=== PATIENT | female | born 1995 | race Caucasian/White ===

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

== ENCOUNTER 2018-05-27 12:42 | Emergency (ER) | payer MEDICARE, OTHER, BC ==
[2018-05-27 13:07] VITALS: RESP 20
[2018-05-27] MEDS ORDERED: SODIUM CHLORIDE 0.9% 1,000 ML IV STA (14:05)
--- NOTE | 2018-05-27 14:23 | ED ---
General Adult HPI - General Chief complaint: Abdominal Pain Stated complaint: abd pain, fever, vomiting Source: family, RN notes reviewed, old records reviewed Mode of arrival: ambulatory Limitations: no limitations - History of Present Illness Initial comments: 22-year-old female patient with past medical history of Down syndrome presents to ED with 1 day of abdominal pain, nausea vomiting, fever, nonproductive cough. Mother provided the majority of history. Mother reports that prior today patient has not had any signs or symptoms. Mother reports that this morning patient complained of generalized abdominal pain at approximately 7 AM. Mother reports that patient has had approximately 3 episodes of emesis today most recently half an hour ago. She reports that patient has also had a nonproductive cough today. She also reports a fever of 100F at home. Reports that patient has not eaten anything today, has just had sips of water. Describes abdominal pain as generalized, no localized pain. Denies chest pain, shortness of breath, diarrhea. Systemic: Pt denies fatigue, myalgia, rash. Pt denies weakness, night sweats, weight loss. Neuro: Pt denies headache, visual disturbances, syncope or pre-syncope. HEENT: Pt denies ocular discharge or irritation, otalgia, rhinorrhea, pharyngitis or notable lymphadenopathy. Cardiopulmonary: Pt denies chest pain, SOB, heart palpitations, dyspnea on exertion. Abdominal/GI: Pt denies diarrhea. : Pt denies dysuria, burning w/ urination, frequency/urgency. Denies new onset urinary or bowel incontinence. MSK: Pt denies myalgia, loss of strength or function in extremities. Neuro: Pt denies new onset weakness, paresthesias. - Related Data Home Medications Medication Instructions Recorded Confirmed Ondansetron [Zofran ODT] 8 mg PO Q8HR 08/29/16 08/29/16 Topiramate [Topamax] 15 mg PO BID 08/29/16 08/29/16 Previous Rx's Medication Instructions Recorded Oseltamivir [Tamiflu] 75 mg PO BID #10 cap 08/29/16 guaiFENesin-Coden 100-10MG/5ML 10 ml PO Q4HR PRN #250 ml 08/29/16 [Robitussin AC] Ondansetron [Zofran] 4 mg PO Q8HR PRN #15 tab 05/27/18 Oseltamivir [Tamiflu] 75 mg PO Q12HR 5 Days cap 05/27/18 Allergies Allergy/AdvReac Type Severity Reaction Status Date / Time No Known Allergies Allergy Verified 05/27/18 13:07 Review of Systems ROS Statement: Those systems with pertinent positive or pertinent negative responses have been documented in the HPI. ROS Other: All systems not noted in ROS Statement are negative. Past Medical History Past Medical History: Pneumonia Additional Past Medical History / Comment(s): down syndrome History of Any Multi-Drug Resistant Organisms: None Reported Past Surgical History: No Surgical Hx Reported Past Psychological History: No Psychological Hx Reported Smoking Status: Never smoker Past Alcohol Use History: None Reported Past Drug Use History: None Reported - Past Family History Mother Family Medical History: No Reported History General Exam - General Exam Comments Initial Comments: Constitutional: NAD, AOX3, Pt has pleasant affect. HEENT: NC/AT, trachea midline, neck supple, no lymphadenopathy. Posterior pharynx non erythematous, without exudates. External ears appear normal, without discharge. Mucous membranes moist. Eyes PERRLA, EOM intact. There is no scleral icterus. No pallor noted. Cardiopulmonary: RRR, no murmurs, rubs or gallops, no JVD noted. Lungs CTAB in anterior and posterior valdes. No peripheral edema. Abdominal exam: Abdomen soft and non-distended. Mild generalized, non localized abdominal pain. No localized tenderness in RLQ. [place] sign negative, psoas sign negative. Bowel sounds active in LLQ. No hepatosplenomegaly. No ecchymosis Neuro: CN II-XII grossly intact. No nuchal rigidity. MSK: No posterior calf tenderness bilaterally, homans sign negative bilaterally. Posterior tibialis and radial pulse +2 bilaterally. Sensation intact in upper and lower extremities. Full active ROM in upper and lower extremities, 5/5 stregnth. Limitations: no limitations Course Vital Signs 05/27/18 13:06 Temperature 98.5 F Pulse Rate 107 H Respiratory 20 Rate Blood Pressure 96/52 O2 Sat by Pulse 100 Oximetry Medical Decision Making - Medical Decision Making 22-year-old female patient with past medical history of Down syndrome presents to ED with 1 day of abdominal pain, nausea vomiting, fever, nonproductive cough. Mother provided the majority of history. Mother reports that prior today patient has not had any signs or symptoms. Mother reports that this morning patient complained of generalized abdominal pain at approximately 7 AM. Mother reports that patient has had approximately 3 episodes of emesis today most recently half an hour ago. She reports that patient has also had a nonproductive cough today. She also reports a fever of 100F at home. Physical examination display acute pathology. O2 investigations CBC, CMP, UA noncompressive. Influenza A was positive. Troponin was negative. Chest x-ray did not display any acute process. CT abdomen and pelvis displayed mesenteric lymph nodes, moderate bladder wall thickening, trace adnexal free fluid, small anterior pericardial effusion 5 mm. Patient not having any chest pain, shortness of breath, signs of tamponade. Troponin negative. Patient given 1 dose of Tamiflu in ED. Patient given IV fluids. Patient to be given prescription for Tamiflu. Patient to follow with PCP in 1-2 days. Patient to return to ED if new signs symptoms develop or if condition worsens in any way. Case discussed with Dr. Bartholomew. - Lab Data Result diagrams: 05/27/18 14:41 05/27/18 14:41 Lab Results 05/27/18 05/27/18 05/27/18 Range/Units 14:41 14:41 14:41 WBC 8.8 (4.0-11.0) k/uL RBC 4.35 (3.80-5.40) m/uL Hgb 14.7 (11.4-16.0) gm/dL Hct 43.1 (34.0-46.0) % MCV 99.1 (80.0-100.0) fL MCH 33.8 (25.0-35.0) pg MCHC 34.1 (31.0-37.0) g/dL RDW 12.5 (11.5-15.5) % Plt Count 216 (150-450) k/uL Neutrophils % 93 % Lymphocytes % 3 % Monocytes % 2 % Eosinophils % 1 % Basophils % 0 % Neutrophils # 8.1 H (1.3-7.7) k/uL Lymphocytes # 0.3 L (1.0-4.8) k/uL Monocytes # 0.2 (0-1.0) k/uL Eosinophils # 0.1 (0-0.7) k/uL Basophils # 0.0 (0-0.2) k/uL Sodium 139 (137-145) mmol/L Potassium 4.1 (3.5-5.1) mmol/L Chloride 106 (98-107) mmol/L Carbon Dioxide 20 L (22-30) mmol/L Anion Gap 13 mmol/L BUN 16 (7-17) mg/dL Creatinine 0.94 (0.52-1.04) mg/dL Est GFR (CKD-EPI)AfAm >90 (>60 ml/min/1.73 sqM) Est GFR (CKD-EPI)NonAf 88 (>60 ml/min/1.73 sqM) Glucose 118 H (74-99) mg/dL Plasma Lactic Acid Eugenio (0.7-2.0) mmol/L Calcium 9.4 (8.4-10.2) mg/dL Total Bilirubin 0.6 (0.2-1.3) mg/dL AST 26 (14-36) U/L ALT 31 (9-52) U/L Alkaline Phosphatase 65 (38-126) U/L Troponin I (0.000-0.034) ng/mL Total Protein 7.8 (6.3-8.2) g/dL Albumin 4.5 (3.5-5.0) g/dL Amylase 38 (30-110) U/L Lipase 77 (23-300) U/L Urine Color Urine Appearance (Clear) Urine pH (5.0-8.0) Ur Specific [place] (1.001-1.035) Urine Protein (Negative) Urine Glucose (UA) (Negative) Urine Ketones (Negative) Urine Blood (Negative) Urine Nitrite (Negative) Urine Bilirubin (Negative) Urine Urobilinogen (<2.0) mg/dL Ur Leukocyte Esterase (Negative) Urine HCG, Qual Not Detected (Not Detectd) Influenza Type A RNA (Not Detectd) Influenza Type B (PCR) (Not Detectd) 05/27/18 05/27/18 05/27/18 Range/Units 14:41 14:41 14:47 WBC (4.0-11.0) k/uL RBC (3.80-5.40) m/uL Hgb (11.4-16.0) gm/dL Hct (34.0-46.0) % MCV (80.0-100.0) fL MCH (25.0-35.0) pg MCHC (31.0-37.0) g/dL RDW (11.5-15.5) % Plt Count (150-450) k/uL Neutrophils % % Lymphocytes % % Monocytes % % Eosinophils % % Basophils % % Neutrophils # (1.3-7.7) k/uL Lymphocytes # (1.0-4.8) k/uL Monocytes # (0-1.0) k/uL Eosinophils # (0-0.7) k/uL Basophils # (0-0.2) k/uL Sodium (137-145) mmol/L Potassium (3.5-5.1) mmol/L Chloride (98-107) mmol/L Carbon Dioxide (22-30) mmol/L Anion Gap mmol/L BUN (7-17) mg/dL Creatinine (0.52-1.04) mg/dL Est GFR (CKD-EPI)AfAm (>60 ml/min/1.73 sqM) Est GFR (CKD-EPI)NonAf (>60 ml/min/1.73 sqM) Glucose (74-99) mg/dL Plasma Lactic Acid Eugenio 1.4 (0.7-2.0) mmol/L Calcium (8.4-10.2) mg/dL Total Bilirubin (0.2-1.3) mg/dL AST (14-36) U/L ALT (9-52) U/L Alkaline Phosphatase (38-126) U/L Troponin I <0.012 (0.000-0.034) ng/mL Total Protein (6.3-8.2) g/dL Albumin (3.5-5.0) g/dL Amylase (30-110) U/L Lipase (23-300) U/L Urine Color Yellow Urine Appearance Clear (Clear) Urine pH 7.5 (5.0-8.0) Ur Specific [place] 1.020 (1.001-1.035) Urine Protein Trace H (Negative) Urine Glucose (UA) Negative (Negative) Urine Ketones Negative (Negative) Urine Blood Negative (Negative) Urine Nitrite Negative (Negative) Urine Bilirubin Negative (Negative) Urine Urobilinogen <2.0 (<2.0) mg/dL Ur Leukocyte Esterase Negative (Negative) Urine HCG, Qual (Not Detectd) Influenza Type A RNA (Not Detectd) Influenza Type B (PCR) (Not Detectd) 05/27/18 Range/Units 15:08 WBC (4.0-11.0) k/uL RBC (3.80-5.40) m/uL Hgb (11.4-16.0) gm/dL Hct (34.0-46.0) % MCV (80.0-100.0) fL MCH (25.0-35.0) pg MCHC (31.0-37.0) g/dL RDW (11.5-15.5) % Plt Count (150-450) k/uL Neutrophils % % Lymphocytes % % Monocytes % % Eosinophils % % Basophils % % Neutrophils # (1.3-7.7) k/uL Lymphocytes # (1.0-4.8) k/uL Monocytes # (0-1.0) k/uL Eosinophils # (0-0.7) k/uL Basophils # (0-0.2) k/uL Sodium (137-145) mmol/L Potassium (3.5-5.1) mmol/L Chloride (98-107) mmol/L Carbon Dioxide (22-30) mmol/L Anion Gap mmol/L BUN (7-17) mg/dL Creatinine (0.52-1.04) mg/dL Est GFR (CKD-EPI)AfAm (>60 ml/min/1.73 sqM) Est GFR (CKD-EPI)NonAf (>60 ml/min/1.73 sqM) Glucose (74-99) mg/dL Plasma Lactic Acid Eugenio (0.7-2.0) mmol/L Calcium (8.4-10.2) mg/dL Total Bilirubin (0.2-1.3) mg/dL AST (14-36) U/L ALT (9-52) U/L Alkaline Phosphatase (38-126) U/L Troponin I (0.000-0.034) ng/mL Total Protein (6.3-8.2) g/dL Albumin (3.5-5.0) g/dL Amylase (30-110) U/L Lipase (23-300) U/L Urine Color Urine Appearance (Clear) Urine pH (5.0-8.0) Ur Specific [place] (1.001-1.035) Urine Protein (Negative) Urine Glucose (UA) (Negative) Urine Ketones (Negative) Urine Blood (Negative) Urine Nitrite (Negative) Urine Bilirubin (Negative) Urine Urobilinogen (<2.0) mg/dL Ur Leukocyte Esterase (Negative) Urine HCG, Qual (Not Detectd) Influenza Type A RNA Detected H (Not Detectd) Influenza Type B (PCR) Not Detected (Not Detectd) Disposition Clinical Impression: Influenza A Disposition: HOME SELF-CARE Condition: Good Instructions: Influenza (ED) Additional Instructions: Patient to adhere to previously discussed treatment plan and will take medication(s) as directed. Patient to follow up with PCP in 1-2 days. Patient to return to ED if symptoms do not improve. Prescriptions: Ondansetron [Zofran] 4 mg PO Q8HR PRN #15 tab PRN Reason: Nausea Oseltamivir [Tamiflu] 75 mg PO Q12HR 5 Days cap Is patient prescribed a controlled substance at d/c from ED?: No Referrals: Ernesto Stinson MD [Primary Care Provider] - 1-2 days Time of Disposition: 17:02
[2018-05-27 14:46] LABS: Appearance,Urine Clear (Clear); Basophils % (A) 0 %; Bilirubin,Urine Negative (Negative); Blood,Urine Negative (Negative); Color,Urine Yellow; Eosinophils # (A) 0.1 k/uL (0-0.7); Eosinophils % (A) 1 %; Glucose,Urine (UA) Negative (Negative); HCT 43.1 % (34.0-46.0); HGB 14.7 gm/dL (11.4-16.0); Ketones,Urine Negative (Negative); Leukocyte Esterase,Urine Negative (Negative); Lymphocytes # (A) 0.3 k/uL (1.0-4.8); Lymphocytes % (A) 3 %; MCH 33.8 pg (25.0-35.0); MCHC 34.1 g/dL (31.0-37.0); MCV 99.1 fL (80.0-100.0); Mean Platelet Volume 6.5; Monocytes # (A) 0.2 k/uL (0-1.0); Monocytes % (A) 2 %; Neutrophils # (A) 8.1 k/uL (1.3-7.7); Neutrophils % (A) 93 %; Nitrite,Urine Negative (Negative); PH, Urine 7.5 (5.0-8.0); Platelet Count 216 k/uL (150-450); Protein,Urine Trace (Negative); RBC 4.35 m/uL (3.80-5.40); RDW 12.5 % (11.5-15.5); Urobilinogen,Urine <2.0 mg/dL (<2.0); WBC 8.8 k/uL (4.0-11.0)
[2018-05-27 14:56] LABS: ALT 31 U/L (9-52); AST 26 U/L (14-36); Albumin 4.5 g/dL (3.5-5.0); Alkaline Phosphatase 65 U/L (38-126); Amylase 38 U/L (30-110); Anion Gap 13 mmol/L; Blood Urea Nitrogen 16 mg/dL (7-17); Calcium 9.4 mg/dL (8.4-10.2); Carbon Dioxide 20 mmol/L (22-30); Chloride 106 mmol/L (98-107); Glucose 118 mg/dL (74-99); Lipase 77 U/L (23-300); Potassium 4.1 mmol/L (3.5-5.1); Sodium 139 mmol/L (137-145); Total Bilirubin 0.6 mg/dL (0.2-1.3); Total Protein 7.8 g/dL (6.3-8.2)
--- NOTE | 2018-05-27 15:31 | CT ---
EXAMINATION TYPE: CT abdomen pelvis w con DATE OF EXAM: 05/27/2018 COMPARISON: 08/21/2010 HISTORY: 22-year-old female Lower abdominal and back pain, vomiting, and fever. TECHNIQUE: Contiguous axial scanning of the abdomen and pelvis following administration of 100 ml Iso ricardo 300 IV contrast. Delayed images through the kidneys and coronal/sagittal reconstructions perform ed. CT DLP: 567.2 mGycm Automated exposure control for dose reduction was used. FINDINGS: Heart normal size with small anterior pericardial effusion measuring 5 mm thick. Lung bases clear wit hout pleural effusion. Liver borderline enlarged at 17.8 cm. Small amount of focal fat anteriorly along the falciform ligame nt. Otherwise, no focal liver lesion. No biliary ductal dilatation. Portal venous system is patent. Gallbladder within normal limits. Adrenal glands, kidneys, spleen with small hilar splenule, pancreas appear within normal limits. Prominent 9 mm right lower quadrant mesenteric lymph node is noted. And additional prominent 7 mm lef t upper quadrant mesenteric lymph node. No retroperitoneal lymphadenopathy. No dilated small bowel, free fluid, or free air. No stool within the right side of the colon. Mild st ool within the cecum and additional scattered mild stool burden within the left side of the colon. No pericolonic inflammatory change. Appendix is normal. Moderate circumferential bladder wall thickening more than expected even given nondistention. Uterus anteverted with both ovaries visualized. Trace right adnexal free fluid is seen and likely physiologi c. No pelvic lymphadenopathy. Bones: No osseous destructive process. Patient is tilted towards the right. IMPRESSION: 1. A COUPLE PROMINENT MESENTERIC LYMPH NODES MEASURING UP TO 9 MM ARE NONSPECIFIC AND MAY BE REACTIVE /POST INFLAMMATORY. MESENTERIC ADENITIS IS ALSO POSSIBLE. 2. MODERATE CIRCUMFERENTIAL BLADDER WALL THICKENING. CORRELATE FOR CYSTITIS. 3. TRACE RIGHT ADNEXAL FREE FLUID LIKELY PHYSIOLOGIC. 4. SMALL ANTERIOR PERICARDIAL EFFUSION MEASURING 5 MM THICK.
--- NOTE | 2018-05-27 15:31 | XR ---
EXAMINATION TYPE: XR chest 2V DATE OF EXAM: 05/27/2018 COMPARISON: 08/29/2016 HISTORY: 22-year-old female fever TECHNIQUE: PA and lateral views FINDINGS: The cardiomediastinal silhouette, aorta, and pulmonary vasculature are within normal limits. Lungs an d pleural spaces are clear. IMPRESSION: No acute cardiopulmonary process.
[2018-05-27] MEDS ORDERED: OSELTAMIVIR 75 MG CAP PO STA (16:04)
[2018-05-27] MEDS ORDERED: SODIUM CHLORIDE 0.9% 500 ML 500 ML IV STA (16:55)
[2018-05-27] MEDS ORDERED: ACETAMINOPHEN TAB 325 MG TAB PO STA (17:43)
[2018-05-27 18:45] VITALS: BP 116/63; PULSE 107; TEMP 101.4
== END 2018-05-27 18:51 | disposition home or self-care (01) ==
LOC: EC 12:42
DX: J10.1 Influenza due to other identified influenza virus with other respiratory manifestations (principal); R10.84 Generalized abdominal pain; Z79.899 Other long term (current) drug therapy
CPT/HCPCS: 36415; 80053; 82150; 83605; 83690; 84484; 85025; 81003; 81025; 87502; 71046; 74177; 99284; 96360; 96361; Q9967

== ENCOUNTER 2020-05-31 09:32 | Emergency (ER) | payer MEDICARE, OTHER ==
[2020-05-31 09:41] VITALS: RESP 18; TEMP 98
[2020-05-31 11:49] LABS: Amphetamine Screen,Urine Not Detected (NotDetected); Benzodiazepines Screen,Urine Not Detected (NotDetected); Cocaine Screen,Urine Not Detected (NotDetected); Methadone Screen, Urine Not Detected (NotDetected); Opiate Screen,Urine Not Detected (NotDetected); Phencyclidine Screen,Urine Not Detected (NotDetected); Tricyclic Antidepressant,Urine Not Detected (NotDetected); Urn Cannabinoid Scrn Not Detected (NotDetected)
[2020-05-31 11:50] LABS: Barbiturate Screen,Urine Not Detected (NotDetected); Oxycodone Screen, Urine Not Detected (NotDetected)
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
[2020-05-31 14:19] VITALS: BP 143/91; PULSE 99
== END 2020-05-31 14:19 | disposition home or self-care (01) ==
LOC: EEVIPCON 09:32 → EC 09:32
DX: R45.6 Violent behavior (principal); Z88.8 Allergy status to other drugs, medicaments and biological substances; Q90.9 Down syndrome, unspecified
CPT/HCPCS: 80306; 81025; 82075; 99285

== ENCOUNTER 2021-01-27 23:50 | Inpatient (IN) | payer MEDICARE, MEDICAID ==
--- NOTE | 2021-01-28 00:29 | ED ---
Psych HPI - General Chief Complaint: Psychiatric Symptoms Stated Complaint: Mental Health Time Seen by Provider: 01/28/21 00:03 Source: patient, EMS, RN notes reviewed, old records reviewed Mode of arrival: EMS Limitations: no limitations - History of Present Illness Initial Comments: This is a 25-year-old female to the ER for evaluation. Patient presents emergency department today for evaluation regarding aggressive outbursts, not taking patient's medications as directed. History of same. MD Complaint: altered mental status, other (Anger management and outbursts) -: days(s) Associated Psychiatric Symptoms: other (Aggressive behavior) Quality: getting worse Worsens With: none Context: not taking psychiatric medications Associated Symptoms: denies other symptoms Treatments Prior to Arrival: placed on mental health hold - Related Data Home Medications Medication Instructions Recorded Confirmed Melatonin 5 - 10 mg PO HS PRN 05/31/20 05/31/20 diphenhydrAMINE HCL [Children's 12.5 mg PO Q4H PRN 05/31/20 05/31/20 Benadryl Allergy] hydrOXYzine pamoate [hydrOXYzine 25 mg PO QID PRN 05/31/20 05/31/20 PAMOATE] Previous Rx's Medication Instructions Recorded traZODone HCL [Desyrel] 50 mg PO HS #14 tab 05/31/20 Allergies Allergy/AdvReac Type Severity Reaction Status Date / Time ziprasidone [From Geodon] AdvReac agitation Verified 05/31/20 11:09 Review of Systems ROS Statement: Those systems with pertinent positive or pertinent negative responses have been documented in the HPI. ROS Other: All systems not noted in ROS Statement are negative. Past Medical History Past Medical History: Pneumonia Additional Past Medical History / Comment(s): down syndrome History of Any Multi-Drug Resistant Organisms: None Reported Past Surgical History: No Surgical Hx Reported Past Psychological History: No Psychological Hx Reported Smoking Status: Never smoker Past Alcohol Use History: None Reported Past Drug Use History: None Reported - Past Family History Mother Family Medical History: No Reported History General Exam General appearance: alert, in no apparent distress Head exam: Present: atraumatic, normocephalic, normal inspection Eye exam: Present: normal appearance, PERRL, EOMI. Absent: scleral icterus, conjunctival injection, periorbital swelling ENT exam: Present: normal exam, mucous membranes moist Neck exam: Present: normal inspection. Absent: tenderness, meningismus, lymphadenopathy Respiratory exam: Present: normal lung sounds bilaterally. Absent: respiratory distress, wheezes, rales, rhonchi, stridor Cardiovascular Exam: Present: regular rate, normal rhythm, normal heart sounds. Absent: systolic murmur, diastolic murmur, rubs, gallop, clicks GI/Abdominal exam: Present: soft, normal bowel sounds. Absent: distended, tenderness, guarding, rebound, rigid Extremities exam: Present: normal inspection, full ROM, normal capillary refill. Absent: tenderness, pedal edema, joint swelling, calf tenderness Back exam: Present: normal inspection Neurological exam: Present: alert, oriented X3, CN II-XII intact Psychiatric exam: Present: normal affect, normal mood Skin exam: Present: warm, dry, intact, normal color. Absent: rash Course Vital Signs 01/27/21 23:52 Temperature 97.9 F Pulse Rate 84 Respiratory 20 Rate Blood Pressure 110/77 O2 Sat by Pulse 98 Oximetry - Reevaluation(s) Reevaluation #1: 01/28/21 01:00 Medical records reviewed 01/28/21 01:00 There for psychiatric evaluation Reevaluation #2: 01/28/21 02:58 Patient seen in and evaluated by psychiatry Medical Decision Making - Medical Decision Making 25 female to the ER for evaluation of psychiatric illness. Patient be admitted for control of mood disorder, anger and aggression. Disposition Clinical Impression: Personality disorder, Mood disorder Disposition: TRANSFER TO PSYCH HOSP/UNIT Condition: Fair Is patient prescribed a controlled substance at d/c from ED?: No Referrals: Chas Kidd DO [Primary Care Provider] - 1-2 days
[2021-01-28] MEDS ORDERED: PALIPERIDONE 3 MG TAB.ER.24 PO STA (03:00)
[2021-01-28] MEDS ORDERED: hydrOXYzine pamoate 25 MG CAP PO PRN (03:39)
[2021-01-28] MEDS ORDERED: LORazepam 1 MG TAB PO PRN (03:42)
[2021-01-28] MEDS ORDERED: LORazepam 2 MG/ML INJ IM PRN (03:45)
[2021-01-28] MEDS ORDERED: HALOPERIDOL LACTATE 5 MG/ML 1 ML VIAL IM PRN (03:46)
[2021-01-28] MEDS ORDERED: traZODone HCL 50 MG TAB PO PRN (03:51)
[2021-01-28] MEDS ORDERED: haloperidoL 5 MG TAB PO PRN (04:00)
[2021-01-28] MEDS ORDERED: ACETAMINOPHEN TAB 325 MG TAB PO PRN (08:00)
[2021-01-28] MEDS ORDERED: MAG HYDROX/AL HYDROX/SIMETH 30 ML CUP PO PRN (08:00)
[2021-01-28] MEDS: PALIPERIDONE 3 MG TAB.ER.24 PO SCH (08:36)
[2021-01-28] MEDS ORDERED: MAGNESIUM HYDROXIDE 2,400 MG/10 ML CUP PO PRN (09:00)
[2021-01-28] MEDS ORDERED: NICOTINE 14MG/24HR PATCH TRANSDERM SCH (09:00)
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
--- NOTE | 2021-01-28 17:54 | P.CONS ---
History of Present Illness - Reason for Consult Consult date: 01/28/21 Medical management Requesting physician: Dale Castillo - Chief Complaint Hitting out - History of Present Illness Consultation: This is a 24-year-old patient who follows with Dr. Chas Lema. Has a known history of Down syndrome. Does have a history of getting aggressive. Normally the mother and the stepfather able to talk her down. The last for 5 days. She is being hitting out and getting aggressive. Throwing things around. In the past but this had to be called out. No fever or chills reported. No shortness of breath. No urinary symptoms. Appetite otherwise has been good. When I come to see the patient she be laying in bed. Comfortable. Able to answer simple questions and communicate. Review of systems: GEN.: None EYES: None HEENT: None NECK: None RESPIRATORY: None CARDIOVASCULAR: None GASTROINTESTINAL: None GENITOURINARY: None MUSCULOSKELETAL: None LYMPHATICS: None HEMATOLOGICAL: None PSYCHIATRY: As above NEUROLOGICAL: None Past medical history to include: Down syndrome Social history: No use of smoking or alcohol. No recreational drugs. Lives with her mother and stepfather Family history: Patient cannot tell Physical examination: VITAL SIGNS: 96.9, 69, 18, 128/68, 98% room air GENERAL: BMI 28.2, laying in bed, comfortable. Down features. EYES: Pupils equal. Conjunctiva normal. HEENT: External appearance of nose and ears normal, oral cavity grossly normal. NECK: JVD not raised; masses not palpable. HEART: First and second heart sounds are normal; no edema. LUNGS: Respiratory rate normal; clear to auscultation. ABDOMEN: Soft, nontender, liver spleen not palpable, no masses palpable. PSYCH: Alert and oriented x3; mood and affect normal. NEUROLOGICAL: Cranial nerves grossly intact; no facial asymmetry, power and sensation grossly intact. LYMPHATICS: No lymph nodes palpable in the axilla and neck Investigations: Coronavirus [PCR]: Not detected Assessment and plan: -Down syndrome -Developmental delay Follow closely Continue current medication treatment plan. Follow with psychiatry medications. Follow-up with PCP upon discharge Thank you Dr. Castillo Past Medical History Past Medical History: Pneumonia Additional Past Medical History / Comment(s): down syndrome History of Any Multi-Drug Resistant Organisms: None Reported Past Surgical History: No Surgical Hx Reported Past Psychological History: No Psychological Hx Reported Smoking Status: Never smoker Past Alcohol Use History: None Reported Past Drug Use History: None Reported - Past Family History Mother Family Medical History: No Reported History Medications and Allergies Home Medications Medication Instructions Recorded Confirmed Type Melatonin 5 - 10 mg PO HS PRN 05/31/20 05/31/20 History diphenhydrAMINE HCL [Children's 12.5 mg PO Q4H PRN 05/31/20 05/31/20 History Benadryl Allergy] hydrOXYzine pamoate [hydrOXYzine 25 mg PO QID PRN 05/31/20 05/31/20 History PAMOATE] traZODone HCL [Desyrel] 50 mg PO HS #14 tab 05/31/20 Rx Allergies Allergy/AdvReac Type Severity Reaction Status Date / Time ziprasidone [From Geodon] AdvReac agitation Verified 05/31/20 11:09 Physical Exam Vitals: Vital Signs Temp Pulse Pulse Resp BP BP Pulse Ox 01/28/21 06:25 96.9 F L 69 18 128/68 98 01/27/21 23:52 97.9 F 84 20 110/77 98 Intake and Output 01/27/21 01/28/21 01/28/21 22:59 06:59 14:59 Other: Weight 68.9 kg
[2021-01-28] MEDS ORDERED: MELATONIN 5 MG TABLET PO PRN (21:00)
[2021-01-29] MEDS: PALIPERIDONE 3 MG TAB.ER.24 PO SCH (08:07)
[2021-01-29 09:25] LABS: Basophils % (A) 1 %; Eosinophils # (A) 0.1 k/uL (0-0.7); Eosinophils % (A) 1 %; HCT 43.2 % (34.0-46.0); HGB 14.6 gm/dL (11.4-16.0); Lymphocytes # (A) 1.6 k/uL (1.0-4.8); Lymphocytes % (A) 33 %; MCH 34.4 pg (25.0-35.0); MCHC 33.9 g/dL (31.0-37.0); MCV 101.6 fL (80.0-100.0); Macrocytosis Slight; Mean Platelet Volume 6.6; Monocytes # (A) 0.3 k/uL (0-1.0); Monocytes % (A) 6 %; Neutrophils # (A) 2.7 k/uL (1.3-7.7); Neutrophils % (A) 57 %; Platelet Count 335 k/uL (150-450); RBC 4.25 m/uL (3.80-5.40); RDW 14.8 % (11.5-15.5); WBC 4.8 k/uL (3.8-10.6)
[2021-01-29 09:52] LABS: ALT 39 U/L (4-34); AST 38 U/L (14-36); African American GFR (CKD) >90 (>60 ml/min/1.73 sqM); Alkaline Phosphatase 65 U/L (38-126); Anion Gap 7 mmol/L; Blood Urea Nitrogen 17 mg/dL (7-17); Calcium 8.8 mg/dL (8.4-10.2); Carbon Dioxide 24 mmol/L (22-30); Chloride 105 mmol/L (98-107); Glucose 94 mg/dL (74-99); Non-African American GFR(CKD) 88 (>60 ml/min/1.73 sqM); Potassium 4.2 mmol/L (3.5-5.1); Sodium 136 mmol/L (137-145); Total Bilirubin 0.2 mg/dL (0.2-1.3); Total Protein 7.1 g/dL (6.3-8.2)
[2021-01-29] MEDS ORDERED: MELATONIN 5 MG TABLET PO PRN (11:57)
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
[2021-01-30] MEDS: PALIPERIDONE 3 MG TAB.ER.24 PO SCH (08:28)
--- NOTE | 2021-01-30 12:18 | P.PN ---
Progress Note - Text Progress Note Date: 01/30/21 Clinical Problems: Developmental disability moderate, Down syndrome, unspecified disruptive, impulse control and conduct disorder, r/o major neurocognitive disorder secondary to Down syndrome. Interim history: I reviewed the medical record and interviewed the patient. She denied problems or concerns. She feels sedated since she started the Invega. She did not perseverated about the circumstances that this hospitalization. Her cognitive limitations were apparent during the interview. She has had no episodes of behavioral dyscontrol since admission to the unit. She is mostly pleasant and cooperative and spends her time in her room. She attended one therapeutic groups since admission. She slept 6 hours last night. Mental status exam: She presented as a short and stocky 24-year-old female with Down syndrome. She made eye contact and appeared to attend to the interview. She had the physical characteristics of Down's syndrome including small chin, slanted eyes and flat nasal bridge. She showed slight psychomotor retardation. Her speech was not spontaneous and had decreased rate and rhythm. Her speech was dysarthric. Her affect was flat and expressive. She did not express suicidal ideation or wishes. She denied homicidal ideation. She denied feeling hopeless, helpless or worthless. She ruminated about circumstances of this hospitalization. She did not express ideas reference, paranoid ideation or delusions. Her thinking was very concrete but her associations were organized and goal directed. She denied hallucinations did not appear to be responding to internal stimuli. Assessment: She showed no episodes of behavioral dyscontrol since admission to the unit. She is sedated most likely from Invega. Plan: Continue inpatient treatment. Safety precautions. Continue Invega 3 mg daily and Desyrel 25 mg at bedtime when necessary for sleep. Decrease when necessary dose of melatonin to 5 mg as prescribed request of her mother. Encourage participation in therapeutic groups and activities as tolerated. Evaluate clinical status response to treatment daily basis.
[2021-01-30 13:58] LABS: Chol/HDL Ratio 3.78; Cholesterol 170 mg/dL (0-200); LDL Cholesterol,Calculated 108.4 mg/dL (0.0-131.0)
[2021-01-31 06:09] VITALS: RESP 16
[2021-01-31] MEDS: PALIPERIDONE 3 MG TAB.ER.24 PO SCH (07:54)
--- NOTE | 2021-01-31 10:21 | P.PN ---
Progress Note - Text Progress Note Date: 01/31/21 Interval History: Patient was seen lying in her bed this morning and was directable and agreeable to speak with advertising copywriter in the office. Patient was fairly pleasant during conversation however was concrete. She spoke briefly about why she came to the hospital and states that "my mom was worried about my medicine". She claims that since being in the hospital she has been doing fairly well in claims that her mood is better on the current medication and treatment. She denied any problems with the medications however did state that she feels "a bit sleepy during the day". She did state that she is going to the activity groups and asking questions. She states that she is eating fairly and showering. She claims that she spoke with her mother yesterday over the phone. She is denying any depression or anxiety today or any irritability. She is agreeable to continue on with her medications. At this time patient denies any suicidal or homical ideations, intent or plan. Patient denies any auditory, visual hallucinations and denies any paranoia or delusions. Mental Status Exam: General Appearance: Patient appears to be short in stature, stated age is alert, directable, and attempts to be cooperative. Behavior: Patient is calmly seated without any agitated behavior. Speech: Patient's speech is fluent and nonpressured. [place] Mood/Affect: Mood is improving mildly, affect is congruent and constricted. Suicidality/Homicidality: Patient denies having any suicidal or homicidal ideation intent or plan. Perceptions: Patient denies any visual hallucinations and denies any auditory hallucinations Though content/process: There is no evidence of any delusional thought content. [place]. Memory and concentration: AOX3, grossly intact for the purposes of this session Judgment and insight: Improving mildly Assessment Developmental disability moderate unspecified disruptive, impulse control and conduct disorder, r/o major neurocognitive disorder secondary to Down syndrome, rule out bipolar disorder Plan: -Patient continues to meet criteria for inpatient psychiatric admission for symptom stabilization and safety. Patient has signed adult voluntary form and was placed in patient's chart. -Medications: Changed paliperidone by mouth to 3mg qhs for mood stabilization /aggression. Melatonin when necessary for sleep. Trazodone when necessary for insomnia. Vistaril when necessary for anxiety -When necessary Ativan and Haldol for agitation/aggression. -NRT - not needed as patient does not smoke -SW on board for discharge planning. Encouraged the patient to participate in milieu. SW to arrange for discharge back home tomorrow.
[2021-01-31] MEDS ORDERED: PALIPERIDONE 3 MG TAB.ER.24 PO SCH (21:00)
[2021-02-01 06:39] VITALS: BP 125/71; PULSE 88; TEMP 97.9
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
== END 2021-02-01 12:05 | disposition home or self-care (01) | DRG 885 ==
LOC: EC 23:50 → 3MHU 01-28 03:23
PROVIDERS: ADMIT Psychiatry & Neurology Psychiatry; ATTEND Psychiatry & Neurology Psychiatry
DX: F39 Unspecified mood [affective] disorder (principal); F41.9 Anxiety disorder, unspecified; F60.9 Personality disorder, unspecified; F63.9 Impulse disorder, unspecified; F71 Moderate intellectual disabilities; G47.00 Insomnia, unspecified; Q90.9 Down syndrome, unspecified; Z79.899 Other long term (current) drug therapy; Z20.822 Contact with and (suspected) exposure to COVID-19
CPT/HCPCS: 80053; 80061; 82075; 84443; 85025; 87635; 99285

== ENCOUNTER 2021-09-22 19:04 | Emergency (ER) | payer MEDICARE, OTHER ==
--- NOTE | 2021-09-22 19:13 | ED ---
Psych HPI <Rios Hernandez - Last Filed: 09/23/21 02:45> - General Source: patient, family, EMS, RN notes reviewed <Luis Fernando Still - Last Filed: 09/23/21 03:51> - General Stated Complaint: Behavioral Issues Time Seen by Provider: 09/22/21 19:07 - History of Present Illness Initial Comments: This is a pleasant 26-year-old female with a history of Down syndrome. Apparently the patient was taken off of her Trileptal by her psychiatrist and has been having some violent outbursts over the past few days. Patient also has not been sleeping well. Patient is able to give a limited history despite having Down syndrome. Patient denying any pain. Patient tells me she is upset because she did not have Banda's. Patient states that she wanted Banda's because she was not excited about eating leftovers. Patient denying any pain. Specifically no chest pain or abdominal pain. Denies any shortness of breath. Patient has no other complaints at this time. Review of systems is limited secondary to Down syndrome. (Luis Fernando Still) - Related Data Home Medications Medication Instructions Recorded Confirmed Cholecalciferol [Vitamin D3 (25 25 mcg PO DAILY 09/22/21 09/22/21 Mcg = 1000 Iu)] Inulin/Chromium Picolinate [Fiber 1 tab PO DAILY 09/22/21 09/22/21 Gummies Chew] Melatonin 1 - 2 mg PO HS PRN 09/22/21 09/22/21 Melatonin Er 4mg 4 - 8 mg PO HS 09/22/21 09/22/21 OXcarbazepine [Trileptal] 150 mg PO HS 09/22/21 09/22/21 hydrOXYzine pamoate [hydrOXYzine 25 mg PO QID PRN 09/22/21 09/22/21 PAMOATE] Previous Rx's Medication Instructions Recorded traZODone HCL [Desyrel] 25 mg PO HS PRN 30 Days tab 02/01/21 Allergies Allergy/AdvReac Type Severity Reaction Status Date / Time ziprasidone [From [facility]] AdvReac agitation Verified 09/22/21 21:17 Review of Systems ROS Other: All systems not noted in ROS Statement are negative. <Rios Hernandez - Last Filed: 09/23/21 02:45> ROS Other: All systems not noted in ROS Statement are negative. <Luis Fernando Still - Last Filed: 09/23/21 03:51> ROS Statement: Those systems with pertinent positive or pertinent negative responses have been documented in the HPI. Limited by Down syndrome (Luis Fernando Still) Past Medical History Past Medical History: Pneumonia Additional Past Medical History / Comment(s): down syndrome History of Any Multi-Drug Resistant Organisms: None Reported Past Surgical History: No Surgical Hx Reported Past Psychological History: No Psychological Hx Reported Smoking Status: Never smoker Past Alcohol Use History: None Reported Past Drug Use History: None Reported - Past Family History Mother Family Medical History: No Reported History <Luis Fernando Still Last Filed: 09/23/21 03:51> General Exam General appearance: alert, in no apparent distress Head exam: Present: atraumatic, normocephalic, normal inspection Eye exam: Present: normal appearance, PERRL, EOMI. Absent: scleral icterus, conjunctival injection, periorbital swelling ENT exam: Present: normal exam, normal oropharynx, mucous membranes moist Neck exam: Present: normal inspection. Absent: tenderness, meningismus, lymphadenopathy Respiratory exam: Present: normal lung sounds bilaterally. Absent: respiratory distress, wheezes, rales, rhonchi, stridor Cardiovascular Exam: Present: regular rate, normal rhythm, normal heart sounds. Absent: systolic murmur, diastolic murmur, rubs, gallop, clicks GI/Abdominal exam: Present: soft, normal bowel sounds. Absent: distended, tenderness, guarding, rebound, rigid Extremities exam: Present: normal inspection, full ROM, normal capillary refill. Absent: tenderness, pedal edema, joint swelling, calf tenderness Back exam: Present: normal inspection Neurological exam: Present: alert, CN II-XII intact, other (Patient alert and oriented to situation) Psychiatric exam: Present: normal affect, normal mood Skin exam: Present: warm, dry, intact, normal color. Absent: rash <ChekoLuis Fernando - Last Filed: 09/23/21 03:51> Course Vital Signs 09/22/21 09/23/21 19:13 02:00 Temperature 98.9 F Pulse Rate 81 80 Respiratory 18 16 Rate Blood Pressure 109/93 112/62 O2 Sat by Pulse 100 97 Oximetry Medical Decision Making <ChekoLuis Fernando - Last Filed: 09/23/21 03:51> - Medical Decision Making EPS evaluation initiated. Patient was discharged by the ED attending physician, Dr. Hernandez (Luis Fernando Still) Disposition Is patient prescribed a controlled substance at d/c from ED?: No <Rios Hernandez - Last Filed: 09/23/21 02:45> Is patient prescribed a controlled substance at d/c from ED?: No <Luis Fernando Still - Last Filed: 09/23/21 03:51> Clinical Impression: Behavioral problem, Down syndrome Disposition: HOME SELF-CARE Condition: Fair Instructions (If sedation given, give patient instructions): Mood Disorders (ED) Referrals: Chas Kidd DO [Primary Care Provider] - 1-2 days
[2021-09-22 19:15] VITALS: TEMP 98.9
[2021-09-23 03:16] VITALS: BP 112/62; PULSE 80; RESP 16
== END 2021-09-23 03:17 | disposition home or self-care (01) ==
LOC: EC 19:04
DX: Q90.9 Down syndrome, unspecified (principal); F91.9 Conduct disorder, unspecified
CPT/HCPCS: 82075; 99284

== ENCOUNTER → 2022-03-16 | Outpatient (CLI) | payer MEDICARE, OTHER ==
[2022-03-16 19:28] LABS: T4, Free (Free Thyroxine) 1.16 ng/dL (0.800-1.800)
[2022-03-16 19:46] LABS: Thyroid Peroxidase Antibodies 36.7 U/mL (0.0-33.0)
== END | disposition home or self-care (01) ==
LOC: LABWHC1 11:28
PROVIDERS: ATTEND Internal Medicine Endocrinology, Diabetes & Metabolism
DX: E03.8 Other specified hypothyroidism (principal)
CPT/HCPCS: 36415; 84439; 84443; 84480; 86376; 86800

== ENCOUNTER → 2022-03-21 | Outpatient (CLI) | payer MEDICARE, OTHER ==
--- NOTE | 2022-03-22 06:05 | CONS ---
CONSULTATION Consultation note for insomnia. HISTORY OF PRESENT ILLNESS: A 26-year-old female patient referred to me by primary care physician, Dr. Chas Kidd regarding ongoing difficulties with insomnia and some behavioral issues. This patient has trisomy 21. She was in adequate condition till approximately 2-3 years ago when she was found to have low ambition and lack of energy and stamina and somewhat sad and no motivation. At that point, she was diagnosed having depression. She was placed on Lexapro initially at 5 mg and then later on 10 mg. This resulted in significant behavioral problems and issues with episodes at times agitation and outbursts. Subsequently, the patient's sleep got disrupted. The patient had difficulties in initiating and maintaining sleep. During the course of her illness, the patient was taken off antidepressant. The insomnia continued to becoming an ongoing issue. The patient was tried on multiple drugs and this included hydroxyzine, Ativan, trazodone. Most recently, she was maintained on 100 mg of trazodone at bedtime, which essentially calms her down. She is also being given Ativan should she have any behavioral problems or agitation. She was given also melatonin, which she is taking 8 mg at bedtime. Despite all this, she is having difficulty in sleep initiation and maintenance. She takes her medications around 8:30 and she goes to bed around 9 p.m. and she wakes up at 3 a.m. in the morning and she has difficulty going to sleep. She gets out. She watches television. She eats food, and this has been a major concern for the family. The patient herself cannot volunteer much of history. Most of the information is obtained from the mother. No reported history of snoring despite her facial and anatomic features related to Down syndrome. She denies having any nighttime choking or gasping for air. No grinding of the teeth. Nevertheless, on examination, she clearly has Down features with Mallampati class 4 and significant crowding of posterior pharynx. No nocturnal heartburn. No recent weight gain. No seizure activity. She does not take any naps during the day. Her current [place] score is at 1. No sleepwalking. No sleep talking. No other complaints otherwise for now. PAST MEDICAL HISTORY: 1. History of depression. 2. History of trisomy 21/Down's syndrome. 3. History of aggressive outbursts. 4. History of insomnia. 5. Degenerative arthritis involving the lumbar spine. PAST SURGICAL HISTORY: None. DRUG ALLERGIES: Not known. OUTPATIENT MEDICATION: Includes: 1. Terbinafine 250 mg 1 tab a day. 2. Melatonin 8 mg p.o. daily. 3. Trazodone 100 mg p.o. daily. 4. Ativan 0.5 mg on a p.r.n. basis. 5. She also takes multivitamins. REVIEW OF SYSTEMS: Cannot be fully obtained because of her underlying mental retardation. FAMILY HISTORY: Negative for insomnia or any form of sleep breathing disorder. PHYSICAL EXAMINATION: VITAL SIGNS: BP is 116/76, pulse 86, respirations 14, temperature 98.2, saturation 99% on room air. [place] score is 1. Weight is 149, height is 5 feet and 1 inch, body mass index is 27.8. GENERAL APPEARANCE: With Down's features, typical. HEENT: Head atraumatic, normocephalic. NECK: Large palate. Large tongue. Mallampati class 4. No goiter or neck masses overbite. LUNGS: Clear to auscultation. HEART: Sounds regular rate and rhythm. Normal S1/S2. No murmurs. ABDOMEN: Soft, nontender, no organomegaly. EXTREMITIES: No edema, cyanosis or clubbing. NEUROLOGICAL: Alert and awake and no focal neurological deficits. There is underlying cognitive impairment with mental retardation. This is commensurate with her diagnosis of Down syndrome. IMPRESSION: 1. Insomnia, chronic. Could be related to underlying depression. No other identifiable secondary causes contributing to this chronic insomnia. Different medication trials on this patient included medications that have antihistaminergic effect in addition to other medications that have antidepressant effect. Furthermore, she was given Ativan for some behavioral issues and melatonin to help her with sleep induction and maintenance. Response has been essentially suboptimal. 2. Down syndrome. 3. History of depression. Ideally, there is a concern for sleep breathing disorder in all the Down syndrome patients. Nevertheless, in this patient, the issue is mainly related to insomnia. I had a discussion with the mother, and I discussed with her be a behavioral therapy intervention. We discussed issues related to sleep restriction and stimulus control, although this can be essentially hard to prevent, especially the patient with mentor-patient cognitive impairment and Down syndrome. Having said this, we can still rely on pharmacotherapy regarding chronic treatments for insomnia. The patient has already been placed on trazodone, which is an antidepressant with some sedating properties. I would like to continue this at this point in time. Cut down the use of Ativan. Use Ambien, which is a benzodiazepine receptor agonist at a dose of 10 mg p.o. daily. This along with melatonin and trazodone will be continued with the intention of gradually eliminating trazodone once the patient is able to establish ability to induce and maintain sleep. If this combination fails, we will try alternatives including orexin receptor agonists. We will continue to follow. MMODL / IJN: [id number] /
== END ==
LOC: SLEEP 14:34
PROVIDERS: ATTEND Internal Medicine Critical Care Medicine
DX: G47.33 Obstructive sleep apnea (adult) (pediatric) (principal); Q90.9 Down syndrome, unspecified; Z86.59 Personal history of other mental and behavioral disorders; Z88.8 Allergy status to other drugs, medicaments and biological substances
CPT/HCPCS: 99211

== ENCOUNTER → 2022-04-24 | Outpatient (CLI) | payer MEDICARE, OTHER | END | disposition home or self-care (01) | LOC: LABWHC1 12:20 | PROVIDERS: ATTEND Internal Medicine Endocrinology, Diabetes & Metabolism | DX: E06.3 Autoimmune thyroiditis (principal) | CPT/HCPCS: 36415; 84443 ==

== ENCOUNTER → 2022-10-09 | Outpatient (CLI) | payer MEDICARE, OTHER ==
--- NOTE | 2022-10-09 17:26 | XR ---
EXAMINATION TYPE: XR chest 2V DATE OF EXAM: 10/09/2022 COMPARISON: 05/27/2018 HISTORY: 27-year-old female J1 8.9, pneumonia TECHNIQUE: Frontal and lateral views FINDINGS: Heart normal size. Aorta and pulmonary vasculature are within normal limits. No consolidation or pleu ral effusion. IMPRESSION: No acute cardiopulmonary process.
== END | disposition home or self-care (01) ==
LOC: RADXRMAIN 13:26
PROVIDERS: ATTEND Family Medicine
DX: J18.9 Pneumonia, unspecified organism (principal)
CPT/HCPCS: 71046

== ENCOUNTER → 2023-10-24 | Outpatient (CLI) | payer MEDICARE ==
--- NOTE | 2023-10-24 19:14 | XR ---
EXAMINATION TYPE: XR chest 2V DATE OF EXAM: 10/24/2023 COMPARISON: 10/09/2022 HISTORY: 28-year-old female R05.3, chronic cough TECHNIQUE: Frontal and lateral views FINDINGS: Heart is upper normal. Hazy mid and lower lung densities. No other consolidation or pleural effusion. IMPRESSION: Hazy mid and lower lung densities may in part relate to overlying soft tissue. Unable to exclude subt le underlying interstitial infiltrates. Consider short interval follow-up to reassess if clinically i ndicated.
== END | disposition home or self-care (01) ==
LOC: RADXRMAIN 15:50
PROVIDERS: ATTEND Family Medicine
DX: J98.4 Other disorders of lung (principal)
CPT/HCPCS: 71046

== ENCOUNTER → 2023-10-29 | Outpatient (CLI) | payer MEDICARE ==
--- NOTE | 2023-10-29 16:08 | XR ---
EXAMINATION TYPE: XR chest 2V DATE OF EXAM: 10/29/2023 11:50 AM CLINICAL INDICATION:Female, 28 years old with history of R05.3 CHRONIC COUGH; [facility] COMPARISON: Chest radiographs from 05/27/2018 10/24/2023 TECHNIQUE: XR chest 2V Frontal and lateral views of the chest. FINDINGS: Lungs/Pleura: There is no evidence of pleural effusion, focal consolidation, or pneumothorax. Pulmonary vascularity: Unremarkable. Appears of slightly thickened interstitium in the medial right l daniel base more so than left lung base is likely due to superimposition of thickened breast soft tissue s. This appearance was displayed on the prior exam from 05/27/2018 Heart/mediastinum: Cardiomediastinal silhouette is unremarkable. Musculoskeletal: No acute osseous pathology. Other findings: None Lines/Tubes: IMPRESSION: No acute cardiopulmonary disease/process.
== END | disposition home or self-care (01) ==
LOC: RADXRMAIN 09:13
PROVIDERS: ATTEND Family Medicine
DX: R05.3 Chronic cough (principal)
CPT/HCPCS: 71046

== ENCOUNTER → 2024-01-26 | Outpatient (CLI) | payer MEDICARE, OTHER ==
[2024-01-27 06:42] LABS: Basophils # (A) 0.04 X 10*3/uL (0.00-0.10); Eosinophils # (A) 0.04 X 10*3/uL (0.04-0.35); HGB 12.2 g/dL (12.0-15.0); Lymphocytes # (A) 1.58 X 10*3/uL (0.90-5.00); Lymphocytes % (A) 39.9 %; MCH 29.7 pg (27.0-32.0); Mean Platelet Volume 9.3 FL (9.5-12.2); Monocytes # (A) 0.29 X 10*3/uL (0.20-1.00); Monocytes % (A) 7.3 %; NRBC Per 100 WBC 0 X 10*3/uL (0.00-0.01); Neutrophils # (A) 1.99 X 10*3/uL (1.80-7.70); Neutrophils % (A) 50.3 %; Platelet Count 406 X 10*3/uL (140-440); RBC 4.11 X 10*6/uL (4.10-5.20); RDW 17.8 % (11.5-14.5); WBC 3.96 X 10*3/uL (4.50-10.00)
[2024-01-27 07:06] LABS: ALT 22 U/L (8-44); AST 22 U/L (13-35); Albumin 4.2 g/dL (3.8-4.9); Alkaline Phosphatase 72 U/L (41-126); BUN/Creat Ratio 9.91 Ratio (12.00-20.00); Blood Urea Nitrogen 10.9 mg/dL (9.0-27.0); Calcium 8.8 mg/dL (8.7-10.3); Carbon Dioxide 24.9 mmol/L (21.6-31.8); Chloride 103 mmol/L (96-109); Chol/HDL Ratio 4.07 Ratio; Globulin 2.8 g/dL (1.6-3.3); Glucose 93 mg/dL (70-110); LDL Cholesterol,Calculated 121.9 mg/dL (0.0-131.0); Potassium 4.9 mmol/L (3.5-5.5); Sodium 138 mmol/L (135-145); Total Bilirubin 0.2 mg/dL (0.3-1.2); VLDL Calculation 10.06 mg/dL (5.00-40.00)
[2024-01-27 08:32] LABS: T4, Free (Free Thyroxine) 0.86 ng/dL (0.80-1.80)
== END ==
LOC: LABWHC1 11:11
PROVIDERS: ATTEND Family Medicine
DX: F32.9 Major depressive disorder, single episode, unspecified (principal); F32.81 Premenstrual dysphoric disorder; F70 Mild intellectual disabilities; E78.5 Hyperlipidemia, unspecified
CPT/HCPCS: 36415; 80053; 80061; 82306; 83036; 84439; 84443; 85025